=== PATIENT | female | born 1965 | race Caucasian/White ===

== ENCOUNTER → 2021-06-06 | Outpatient (CLI) | payer OTHER ==
[~2021-06-06] MED LIST: CALCIUM500 MG PO; IRON325 M1 PO; PROTONIX 40 MG40 M1 PO; THERA-M CAPLET1 EACH PO; VITAMIN C500 M1 PO
== END ==
LOC: MAMO 05-17 14:30
DX: Z12.31 Encounter for screening mammogram for malignant neoplasm of breast (principal)
CPT/HCPCS: 77063; 77067